=== PATIENT | male | born 1950 | race Caucasian/White ===

== ENCOUNTER 2024-10-06 09:12 | Outpatient (CLI) | payer MEDICARE, SELFPAY ==
[2024-10-06 09:51] LABS: Abs Immature Grans 0.02 10^3/uL (0.0-0.06); HCT 44.0 % (40.0-50.0); HGB 15.2 g/dL (13.5-17.5); Immature Grans % 0.2 %; MCH 29.6 pg (27.0-33.0); MCHC 34.5 % (32.0-36.0); MCV 86 fL (80-95); MPV 9.6 fL (8.0-11.0); Platelet Count 222 10^3/uL (130-400); RBC 5.14 10^6/uL (4.36-5.78); RDW 11.9 % (11.8-14.1); RDW-SD 37.4 fL; WBC 10.03 10^3/uL (4.4-10.8)
[2024-10-06 10:08] LABS: ALT 43 U/L (16-63); AST 16 U/L (15-37); Albumin 3.8 g/dL (3.4-5.0); Alkaline Phosphatase 120 U/L (46-116); Anion Gap 8.5 mmol/L (3-11); BUN 16 mg/dL (7-18); Bilirubin, Total 0.5 mg/dL (0.2-1.0); CO2 29.5 mmol/L (21.0-32.0); Calcium 9.6 mg/dL (8.5-10.1); Chloride 101 mmol/L (98-107); Estimated GFR 90.18 (mL/min/1.73m2); Glucose 161 mg/dL (74-106); Magnesium 2.1 mg/dL (1.8-2.4); Potassium 4.2 mmol/L (3.5-5.1); Sodium 139 mmol/L (136-145); Total Protein 7.5 g/dL (6.4-8.2)
== END 2024-10-06 09:13 | disposition home or self-care (01) ==
LOC: LBO 09:12
PROVIDERS: PCP Physician Assistant Medical; Visit Provider Internal Medicine Hematology
DX: C79.89 Secondary malignant neoplasm of other specified sites (principal)
CPT/HCPCS: 36415; 80053; 83735; 85025

== ENCOUNTER 2024-10-13 08:00 | Outpatient (RCR) | payer MEDICARE, SELFPAY ==
[2024-10-13 09:40] LABS: Abs Immature Grans 0.04 10^3/uL (0.0-0.06); HCT 42.1 % (40.0-50.0); HGB 14.6 g/dL (13.5-17.5); Immature Grans % 0.4 %; MCH 30.0 pg (27.0-33.0); MCHC 34.7 % (32.0-36.0); MCV 86 fL (80-95); MPV 10.4 fL (8.0-11.0); Platelet Count 161 10^3/uL (130-400); RBC 4.87 10^6/uL (4.36-5.78); RDW 12.1 % (11.8-14.1); RDW-SD 37.9 fL; WBC 9.20 10^3/uL (4.4-10.8)
[2024-10-13 10:04] LABS: ALT 38 U/L (16-63); AST 17 U/L (15-37); Albumin 3.4 g/dL (3.4-5.0); Alkaline Phosphatase 113 U/L (46-116); Anion Gap 7.9 mmol/L (3-11); BUN 17 mg/dL (7-18); Bilirubin, Total 0.8 mg/dL (0.2-1.0); CO2 30.1 mmol/L (21.0-32.0); Calcium 9.6 mg/dL (8.5-10.1); Chloride 98 mmol/L (98-107); Estimated GFR 79.47 (mL/min/1.73m2); Glucose 156 mg/dL (74-106); Magnesium 1.8 mg/dL (1.8-2.4); Potassium 4.1 mmol/L (3.5-5.1); Sodium 136 mmol/L (136-145); Total Protein 7.4 g/dL (6.4-8.2)
[2024-10-13] MEDS: Normal Saline Flush 10 ML SYR IVP (10:23)
== END 2024-10-19 23:59 | disposition home or self-care (01) ==
LOC: INF 08:00
PROVIDERS: PCP Physician Assistant Medical; Visit Provider Internal Medicine Hematology
DX: C79.89 Secondary malignant neoplasm of other specified sites (principal)
CPT/HCPCS: 36415; 80053; 83735; 85025

== ENCOUNTER 2024-11-17 03:49 | Outpatient (RCR) | payer MEDICARE, SELFPAY ==
[2024-10-21] MEDS: Normal Saline Flush 10 ML SYR IVP (08:47)
[2024-10-21 09:05] LABS: Abs Immature Grans 0.02 10^3/uL (0.0-0.06); HCT 38.9 % (40.0-50.0); HGB 13.4 g/dL (13.5-17.5); Immature Grans % 0.3 %; MCH 29.7 pg (27.0-33.0); MCHC 34.4 % (32.0-36.0); MCV 86 fL (80-95); MPV 9.6 fL (8.0-11.0); Platelet Count 140 10^3/uL (130-400); RBC 4.51 10^6/uL (4.36-5.78); RDW 12.2 % (11.8-14.1); RDW-SD 37.7 fL; WBC 6.69 10^3/uL (4.4-10.8)
[2024-10-21 09:26] LABS: ALT 43 U/L (16-63); AST 17 U/L (15-37); Albumin 3.4 g/dL (3.4-5.0); Alkaline Phosphatase 109 U/L (46-116); Anion Gap 6.2 mmol/L (3-11); BUN 15 mg/dL (7-18); Bilirubin, Total 0.7 mg/dL (0.2-1.0); CO2 29.8 mmol/L (21.0-32.0); Calcium 9.3 mg/dL (8.5-10.1); Chloride 101 mmol/L (98-107); Estimated GFR 79.47 (mL/min/1.73m2); Glucose 140 mg/dL (74-106); Magnesium 1.6 mg/dL (1.8-2.4); Potassium 4.6 mmol/L (3.5-5.1); Sodium 137 mmol/L (136-145); Total Protein 7.0 g/dL (6.4-8.2)
[2024-10-27] MEDS: Normal Saline Flush 10 ML SYR IVP (08:26)
[2024-10-27 08:34] LABS: Abs Immature Grans 0.01 10^3/uL (0.0-0.06); HCT 35.8 % (40.0-50.0); HGB 12.6 g/dL (13.5-17.5); Immature Grans % 0.3 %; MCH 29.9 pg (27.0-33.0); MCHC 35.2 % (32.0-36.0); MCV 85 fL (80-95); MPV 10.0 fL (8.0-11.0); RBC 4.22 10^6/uL (4.36-5.78); RDW 12.4 % (11.8-14.1); RDW-SD 37.0 fL; WBC 3.41 10^3/uL (4.4-10.8)
[2024-10-27 08:58] LABS: Platelet Count 92 10^3/uL (130-400)
[2024-10-27 09:00] LABS: ALT 39 U/L (16-63); AST 19 U/L (15-37); Albumin 3.4 g/dL (3.4-5.0); Alkaline Phosphatase 109 U/L (46-116); Anion Gap 6.5 mmol/L (3-11); BUN 22 mg/dL (7-18); Bilirubin, Total 0.7 mg/dL (0.2-1.0); CO2 32.5 mmol/L (21.0-32.0); Calcium 8.9 mg/dL (8.5-10.1); Chloride 99 mmol/L (98-107); Estimated GFR 58.01 (mL/min/1.73m2); Glucose 148 mg/dL (74-106); Magnesium 1.4 mg/dL (1.8-2.4); Potassium 4.1 mmol/L (3.5-5.1); Sodium 138 mmol/L (136-145); Total Protein 6.9 g/dL (6.4-8.2)
[2024-11-03 09:43] LABS: Abs Immature Grans 0.00 10^3/uL (0.0-0.06); HCT 33.4 % (40.0-50.0); HGB 11.8 g/dL (13.5-17.5); Immature Grans % 0.0 %; MCH 30.3 pg (27.0-33.0); MCHC 35.3 % (32.0-36.0); MCV 86 fL (80-95); MPV 9.6 fL (8.0-11.0); Platelet Count 104 10^3/uL (130-400); RBC 3.89 10^6/uL (4.36-5.78); RDW 13.2 % (11.8-14.1); RDW-SD 37.8 fL; WBC 2.19 10^3/uL (4.4-10.8)
[2024-11-03 09:52] LABS: ALT 47 U/L (16-63); AST 17 U/L (15-37); Albumin 3.4 g/dL (3.4-5.0); Alkaline Phosphatase 113 U/L (46-116); Anion Gap 6.4 mmol/L (3-11); BUN 20 mg/dL (7-18); Bilirubin, Total 0.9 mg/dL (0.2-1.0); CO2 31.6 mmol/L (21.0-32.0); Calcium 9.3 mg/dL (8.5-10.1); Chloride 100 mmol/L (98-107); Estimated GFR 79.47 (mL/min/1.73m2); Glucose 135 mg/dL (74-106); Magnesium 1.6 mg/dL (1.8-2.4); Potassium 4.6 mmol/L (3.5-5.1); Sodium 138 mmol/L (136-145); Total Protein 7.0 g/dL (6.4-8.2)
[2024-11-03] MEDS: Normal Saline Flush 10 ML SYR IVP (09:52)
[2024-11-10] MEDS: Normal Saline Flush 10 ML SYR IVP (09:09)
[2024-11-10 09:40] LABS: Abs Immature Grans 0.04 10^3/uL (0.0-0.06); HCT 33.3 % (40.0-50.0); HGB 11.9 g/dL (13.5-17.5); Immature Grans % 1.4 %; MCH 30.8 pg (27.0-33.0); MCHC 35.7 % (32.0-36.0); MCV 86 fL (80-95); MPV 9.3 fL (8.0-11.0); Platelet Count 222 10^3/uL (130-400); RBC 3.86 10^6/uL (4.36-5.78); RDW 13.9 % (11.8-14.1); RDW-SD 39.9 fL; WBC 2.89 10^3/uL (4.4-10.8)
[2024-11-10 09:59] LABS: ALT 64 U/L (16-63); AST 26 U/L (15-37); Albumin 3.3 g/dL (3.4-5.0); Alkaline Phosphatase 118 U/L (46-116); Anion Gap 6.5 mmol/L (3-11); BUN 21 mg/dL (7-18); Bilirubin, Total 0.7 mg/dL (0.2-1.0); CO2 28.5 mmol/L (21.0-32.0); Calcium 9.2 mg/dL (8.5-10.1); Chloride 99 mmol/L (98-107); Estimated GFR 70.88 (mL/min/1.73m2); Glucose 141 mg/dL (74-106); Magnesium 1.6 mg/dL (1.8-2.4); Potassium 4.5 mmol/L (3.5-5.1); Sodium 134 mmol/L (136-145); Total Protein 7.0 g/dL (6.4-8.2)
[2024-11-17] MEDS: Normal Saline Flush 10 ML SYR IVP (08:18)
[2024-11-17 08:30] LABS: Abs Immature Grans 0.30 10^3/uL (0.0-0.06); HCT 31.3 % (40.0-50.0); HGB 11.0 g/dL (13.5-17.5); MCH 30.2 pg (27.0-33.0); MCHC 35.1 % (32.0-36.0); MCV 86 fL (80-95); MPV 9.3 fL (8.0-11.0); Platelet Count 251 10^3/uL (130-400); RBC 3.64 10^6/uL (4.36-5.78); RDW 14.6 % (11.8-14.1); RDW-SD 42.2 fL; WBC 5.67 10^3/uL (4.4-10.8)
[2024-11-17 08:51] LABS: Immature Grans % 0.0 %; RBC Morphology Normal
[2024-11-17 09:11] LABS: ALT 72 U/L (16-63); AST 27 U/L (15-37); Albumin 3.3 g/dL (3.4-5.0); Alkaline Phosphatase 131 U/L (46-116); Anion Gap 7.8 mmol/L (3-11); BUN 22 mg/dL (7-18); Bilirubin, Total 0.5 mg/dL (0.2-1.0); CO2 28.2 mmol/L (21.0-32.0); Calcium 9.2 mg/dL (8.5-10.1); Chloride 98 mmol/L (98-107); Estimated GFR 70.88 (mL/min/1.73m2); Glucose 141 mg/dL (74-106); Magnesium 1.5 mg/dL (1.8-2.4); Potassium 4.4 mmol/L (3.5-5.1); Sodium 134 mmol/L (136-145); Total Protein 7.0 g/dL (6.4-8.2)
== END 2024-11-18 23:59 | disposition home or self-care (01) ==
LOC: INF 03:49
PROVIDERS: PCP Physician Assistant Medical; Visit Provider Internal Medicine Hematology
DX: C79.89 Secondary malignant neoplasm of other specified sites (principal); C78.89 Secondary malignant neoplasm of other digestive organs; Z45.2 Encounter for adjustment and management of vascular access device
CPT/HCPCS: 36591; 80053; 83735; 85025

== ENCOUNTER 2024-12-08 03:28 | Outpatient (RCR) | payer MEDICARE, SELFPAY ==
[2024-11-24] MEDS: Normal Saline Flush 10 ML SYR IVP (12:09)
[2024-11-24 12:10] LABS: Abs Immature Grans 0.03 10^3/uL (0.0-0.06); HCT 29.5 % (40.0-50.0); HGB 10.4 g/dL (13.5-17.5); Immature Grans % 0.5 %; MCH 31.5 pg (27.0-33.0); MCHC 35.3 % (32.0-36.0); MCV 89 fL (80-95); MPV 9.5 fL (8.0-11.0); Platelet Count 158 10^3/uL (130-400); RBC 3.30 10^6/uL (4.36-5.78); RDW 17.0 % (11.8-14.1); RDW-SD 50.8 fL; WBC 5.47 10^3/uL (4.4-10.8)
[2024-11-24 12:31] LABS: ALT 45 U/L (16-63); AST 18 U/L (15-37); Albumin 3.1 g/dL (3.4-5.0); Alkaline Phosphatase 131 U/L (46-116); Anion Gap 6.7 mmol/L (3-11); BUN 26 mg/dL (7-18); Bilirubin, Total 0.4 mg/dL (0.2-1.0); CO2 30.3 mmol/L (21.0-32.0); Calcium 9.0 mg/dL (8.5-10.1); Chloride 99 mmol/L (98-107); Glucose 211 mg/dL (74-106); Magnesium 1.6 mg/dL (1.8-2.4); Potassium 4.5 mmol/L (3.5-5.1); Sodium 136 mmol/L (136-145); Total Protein 6.7 g/dL (6.4-8.2)
[2024-12-01 12:51] LABS: Abs Immature Grans 0.02 10^3/uL (0.0-0.06); HCT 30.6 % (40.0-50.0); HGB 10.7 g/dL (13.5-17.5); Immature Grans % 0.4 %; MCH 31.4 pg (27.0-33.0); MCHC 35.0 % (32.0-36.0); MCV 90 fL (80-95); MPV 9.7 fL (8.0-11.0); Platelet Count 123 10^3/uL (130-400); RBC 3.41 10^6/uL (4.36-5.78); RDW 18.4 % (11.8-14.1); RDW-SD 57.0 fL; WBC 5.15 10^3/uL (4.4-10.8)
[2024-12-01 13:06] LABS: ALT 43 U/L (16-63); AST 19 U/L (15-37); Albumin 3.4 g/dL (3.4-5.0); Alkaline Phosphatase 120 U/L (46-116); Anion Gap 7.3 mmol/L (3-11); BUN 27 mg/dL (7-18); Bilirubin, Total 0.6 mg/dL (0.2-1.0); CO2 31.7 mmol/L (21.0-32.0); Calcium 9.3 mg/dL (8.5-10.1); Chloride 98 mmol/L (98-107); Glucose 171 mg/dL (74-106); Magnesium 1.9 mg/dL (1.8-2.4); Potassium 4.3 mmol/L (3.5-5.1); Sodium 137 mmol/L (136-145); Total Protein 7.0 g/dL (6.4-8.2)
[2024-12-01] MEDS: Normal Saline Flush 10 ML SYR IVP (13:30)
[2024-12-08] MEDS: Normal Saline Flush 10 ML SYR IVP (12:30)
[2024-12-08 12:40] LABS: Abs Immature Grans 0.01 10^3/uL (0.0-0.06); HCT 31.0 % (40.0-50.0); HGB 11.0 g/dL (13.5-17.5); Immature Grans % 0.2 %; MCH 32.9 pg (27.0-33.0); MCHC 35.5 % (32.0-36.0); MCV 93 fL (80-95); MPV 10.1 fL (8.0-11.0); Platelet Count 125 10^3/uL (130-400); RBC 3.34 10^6/uL (4.36-5.78); RDW 19.1 % (11.8-14.1); RDW-SD 61.8 fL; WBC 5.00 10^3/uL (4.4-10.8)
[2024-12-08 13:00] LABS: ALT 38 U/L (16-63); AST 17 U/L (15-37); Albumin 3.5 g/dL (3.4-5.0); Alkaline Phosphatase 122 U/L (46-116); Anion Gap 9.3 mmol/L (3-11); BUN 29 mg/dL (7-18); Bilirubin, Total 0.6 mg/dL (0.2-1.0); CO2 30.7 mmol/L (21.0-32.0); Calcium 9.5 mg/dL (8.5-10.1); Chloride 99 mmol/L (98-107); Glucose 171 mg/dL (74-106); Magnesium 1.9 mg/dL (1.8-2.4); Potassium 3.9 mmol/L (3.5-5.1); Sodium 139 mmol/L (136-145); Total Protein 7.4 g/dL (6.4-8.2)
== END 2024-12-19 23:59 | disposition home or self-care (01) ==
LOC: INF 03:28
PROVIDERS: PCP Physician Assistant Medical; Visit Provider Internal Medicine Hematology
DX: C79.89 Secondary malignant neoplasm of other specified sites (principal); Z45.2 Encounter for adjustment and management of vascular access device
CPT/HCPCS: 36591; 80053; 83735; 85025

== ENCOUNTER 2024-12-22 03:27 | Outpatient (RCR) | payer MEDICARE, SELFPAY ==
[2024-12-22 09:51] LABS: Abs Immature Grans 0.01 10^3/uL (0.0-0.06); HCT 31.4 % (40.0-50.0); HGB 10.7 g/dL (13.5-17.5); Immature Grans % 0.3 %; MCH 32.9 pg (27.0-33.0); MCHC 34.1 % (32.0-36.0); MCV 97 fL (80-95); MPV 9.7 fL (8.0-11.0); Platelet Count 270 10^3/uL (130-400); RBC 3.25 10^6/uL (4.36-5.78); RDW 18.6 % (11.8-14.1); RDW-SD 65.7 fL; WBC 3.78 10^3/uL (4.4-10.8)
[2024-12-22 10:03] LABS: ALT 31 U/L (16-63); AST 15 U/L (15-37); Albumin 3.5 g/dL (3.4-5.0); Alkaline Phosphatase 119 U/L (46-116); Anion Gap 8.1 mmol/L (3-11); BUN 27 mg/dL (7-18); Bilirubin, Total 0.6 mg/dL (0.2-1.0); CO2 31.9 mmol/L (21.0-32.0); Calcium 9.3 mg/dL (8.5-10.1); Chloride 101 mmol/L (98-107); Estimated GFR 90.18 (mL/min/1.73m2); Glucose 197 mg/dL (74-106); Magnesium 1.8 mg/dL (1.8-2.4); Potassium 3.9 mmol/L (3.5-5.1); Sodium 141 mmol/L (136-145); Total Protein 7.3 g/dL (6.4-8.2)
[2024-12-22] MEDS: Normal Saline Flush 10 ML SYR IVP (10:25)
== END 2025-01-18 23:59 | disposition home or self-care (01) ==
LOC: INF 03:27
PROVIDERS: PCP Physician Assistant Medical; Visit Provider Internal Medicine Hematology
DX: C79.89 Secondary malignant neoplasm of other specified sites (principal); Z45.2 Encounter for adjustment and management of vascular access device
CPT/HCPCS: 36591; 80053; 83735; 85025

== ENCOUNTER 2025-01-19 03:13 | Outpatient (RCR) | payer MEDICARE, SELFPAY ==
[2025-01-19] MEDS: Normal Saline Flush 10 ML SYR IVP (11:02)
[2025-01-19 11:14] LABS: Abs Immature Grans 0.03 10^3/uL (0.0-0.06); HCT 31.9 % (40.0-50.0); HGB 10.7 g/dL (13.5-17.5); Immature Grans % 0.5 %; MCH 33.0 pg (27.0-33.0); MCHC 33.5 % (32.0-36.0); MCV 99 fL (80-95); MPV 10.6 fL (8.0-11.0); Platelet Count 214 10^3/uL (130-400); RBC 3.24 10^6/uL (4.36-5.78); RDW 13.2 % (11.8-14.1); RDW-SD 47.3 fL; WBC 6.61 10^3/uL (4.4-10.8)
[2025-01-19 11:28] LABS: Magnesium 1.6 mg/dL (1.6-2.6)
[2025-01-19 11:30] LABS: ALT 18 U/L (10-49); AST 16 U/L (<34); Albumin 4.1 g/dL (3.2-5.0); Alkaline Phosphatase 111 U/L (46-116); Anion Gap 7.5 mmol/L (3-11); BUN 26 mg/dL (9-23); Bilirubin, Total 0.50 mg/dL (0.2-1.2); CO2 29.5 mmol/L (20.0-31.0); Calcium 9.3 mg/dL (8.3-10.6); Chloride 103 mmol/L (98-107); Glucose 138 mg/dL (74-106); Potassium 3.9 mmol/L (3.5-5.1); Sodium 140 mmol/L (136-145); Total Protein 7.0 g/dL (5.7-8.2)
== END 2025-02-18 23:59 | disposition home or self-care (01) ==
LOC: INF 03:13
PROVIDERS: PCP Physician Assistant Medical; Visit Provider Internal Medicine Hematology
DX: C79.89 Secondary malignant neoplasm of other specified sites (principal); Z45.2 Encounter for adjustment and management of vascular access device
CPT/HCPCS: 36591; 80053; 83735; 85025